=== PATIENT | female | born 1970 | race Caucasian/White ===

== ENCOUNTER → 2016-10-11 | Outpatient (REF) | payer BC | LOC: M LAB REF 13:13 | PROVIDERS: ATTEND Advanced Practice Midwife | DX: Z12.4 Encounter for screening for malignant neoplasm of cervix (principal) ==

== ENCOUNTER → 2016-10-20 | Outpatient (CLI) | payer BC ==
[2016-10-20 08:46] LABS: MEAN CORPUSCULAR HEMOGLOBIN 30.6 pg (27.0-33.0); MEAN CORPUSCULAR VOLUME 89.8 fl (80.0-96.0); RED CELL DISTRIBUTION WIDTH 12.4 % (11.5-14.5)
[2016-10-20 09:11] LABS: FREE T4 0.8 NG/DL (0.76-1.46)
[2016-10-23 09:37] LABS: WHITE BLOOD COUNT 8.9 K/mm3 (4.0-10.0)
== END ==
LOC: M LAB 07:50
PROVIDERS: ATTEND Advanced Practice Midwife
DX: B37.3 Candidiasis of vulva and vagina (principal); R53.82 Chronic fatigue, unspecified; Z13.220 Encounter for screening for lipoid disorders

== ENCOUNTER → 2017-03-20 | Outpatient (CLI) | payer BC ==
--- NOTE | 2017-03-20 10:11 | REPMRS ---
Patient History The patient states she had a clinical breast exam in September 2016.Family history of breast cancer in sister at age 41 and unknown cancer in paternal grandmother at age 70. Took hormonal contraceptives for 12 years. Taking unspecified hormones for 4 years. Digital Mammo Screening Bilat: March 20, 2017 - Exam #: [id number] Bilateral CC and MLO view(s) were taken. Technologist: Robina Dejesus, Technologist Prior study comparison: February 29, 2016, bilateral digital mammo screening bilat performed at [facility]. November 20, 2014, bilateral digital mammo screening bilat performed at [facility]. September 12, 2013, bilateral digital mammo screening bilat performed at [facility]. May 03, 2011, bilateral bilat screen digital mammo, performed at [facility] ([facility]). FINDINGS: The breast tissue is heterogeneously dense. This may lower the sensitivity of mammography. There is a moderate amount of heterogeneously dense fibroglandular tissue which is fairly symmetric. There is no interval development of dominant mass, architectural distortion, or clustered microcalcification typical of malignancy. There has been no change in the appearance of the mammogram from the prior studies. ASSESSMENT: BI-RADS/ACR category 1 mammogram. Negative. Recommendation Routine screening mammogram of both breasts in 1 year (for women over age 40). This mammogram was interpreted with the aid of an FDA-approved computer-aided dectection system. Electronically Signed By: Rojas Reid MD 03/20/17 101
== END ==
LOC: M RAD 07:58
PROVIDERS: ATTEND Advanced Practice Midwife
DX: Z12.31 Encounter for screening mammogram for malignant neoplasm of breast (principal)

== ENCOUNTER → 2019-03-11 | Outpatient (REF) | payer OTHER ==
[2019-03-14 14:50] LABS: HPV HYBRID CAPTURE II Negative (Negative)
== END ==
LOC: M LAB REF 19:26
PROVIDERS: ATTEND Advanced Practice Midwife
DX: Z12.4 Encounter for screening for malignant neoplasm of cervix (principal)
CPT/HCPCS: 87624; G0123

== ENCOUNTER → 2019-07-22 | Outpatient (REF) | payer OTHER ==
[2019-07-22 10:49] LABS: ALBUMIN 3.7 GM/DL (3.2-5.2); ALT/SGPT 22 U/L (12-78); BILIRUBIN,TOTAL 0.4 MG/DL (0.2-1.0); BLOOD UREA NITROGEN 17 MG/DL (7-18); CALCIUM LEVEL 8.9 MG/DL (8.5-10.1); CARBON DIOXIDE LEVEL 25 MEQ/L (21-32); CHLORIDE LEVEL 107 MEQ/L (98-107); CHOLESTEROL LEVEL 231 MG/DL (<200); CHOLESTEROL RISK RATIO 6.078 (<5); CREATININE FOR GFR 0.94 MG/DL (0.55-1.30); GLOMERULAR FILTRATION RATE > 60.0 (>58); GLUCOSE, FASTING 88 MG/DL (70-100); HDL CHOLESTEROL 38 MG/DL (>40); LDL CHOLESTEROL 147 MG/DL (<100); NON-HDL-C 193 MG/DL; POTASSIUM SERUM 4.4 MEQ/L (3.5-5.1); SODIUM LEVEL 140 MEQ/L (136-145); TOTAL PROTEIN 6.8 GM/DL (6.4-8.2); TRIGLYCERIDES LEVEL 230 MG/DL (<150)
== END ==
LOC: M SFHCPLAZ 08:41
PROVIDERS: ATTEND Nurse Practitioner Adult Health
DX: Z00.00 Encounter for general adult medical examination without abnormal findings (principal); E78.2 Mixed hyperlipidemia; R00.2 Palpitations

== ENCOUNTER → 2021-02-15 | Outpatient (REF) | payer OTHER | LOC: M SFHCWAGY 08:32 | PROVIDERS: ATTEND Advanced Practice Midwife | DX: Z12.4 Encounter for screening for malignant neoplasm of cervix (principal); B37.3 Candidiasis of vulva and vagina ==

== ENCOUNTER → 2022-10-27 | Outpatient (REF) | payer OTHER, BC | LOC: M SFHCWAGY 16:57 | PROVIDERS: ATTEND Advanced Practice Midwife | DX: Z12.4 Encounter for screening for malignant neoplasm of cervix (principal) | CPT/HCPCS: 87624; G0123 ==

== ENCOUNTER → 2024-03-11 | Outpatient (REF) | payer BC ==
[2024-03-13 13:54] LABS: HPV APTIMA Not Detected (Not Detected)
== END ==
LOC: M SFHCWAGY 15:03
PROVIDERS: ATTEND Advanced Practice Midwife
DX: Z12.4 Encounter for screening for malignant neoplasm of cervix (principal)

== ENCOUNTER → 2025-05-27 | Outpatient (CLI) | payer BC | LOC: M PLAIMG 09:33 | PROVIDERS: ATTEND Nurse Practitioner Family | DX: R00.2 Palpitations (principal); R06.2 Wheezing ==

== ENCOUNTER → 2025-06-17 | Outpatient (CLI) | payer BC ==
[2025-06-17 17:47] LABS: LUTEINIZING HORMONE 26.6 mIU/ML; PROLACTIN 4.35 NG/ML
[2025-06-17 17:48] LABS: ESTRADIOL < 19.0 PG/ML; PROGESTERONE 0.25 NG/ML
[2025-06-19 21:47] LABS: DEHYDROEPIANDROSTERONE SULFATE 98 mcg/dL (5-167); SEX HORMONE BINDING GLOBULIN 22 nmol/L (17-124)
== END ==
LOC: M PLALAB 14:49
PROVIDERS: ATTEND Advanced Practice Midwife
DX: R23.2 Flushing (principal); R61 Generalized hyperhidrosis; N95.1 Menopausal and female climacteric states